=== PATIENT | female | born 1960 ===

== ENCOUNTER → 2023-07-12 | Outpatient (CLI) | payer OTHER ==
[2023-07-15 16:08] LABS: HPV 16 Negative (Negative); HPV 18 Negative (Negative); HPV OTHER HR TYPES Negative (Negative)
== END ==
LOC: LAB SHORT 10:56 → LAB 10:56
PROVIDERS: Nurse Practitioner Family
DX: Z01.419 Encounter for gynecological examination (general) (routine) without abnormal findings (principal); Z11.51 Encounter for screening for human papillomavirus (HPV)
CPT/HCPCS: 87624; G0145

== ENCOUNTER → 2025-09-06 | Outpatient (CLI) | payer MEDICARE, OTHER ==
[~2025-09-06] MED LIST: Atarax10 MG PO; FLUO10 PO; Percocet 5-3251 EACH PO
== END ==
LOC: LAB SHORT 14:32 → LAB 14:32
DX: L03.211 Cellulitis of face (principal)
CPT/HCPCS: 87070; 87077; 87147; 87186; 87205